=== PATIENT | female | born 1990 | race African-American/Black ===

== ENCOUNTER 2020-11-20 12:32 | Emergency (ER) | payer OTHER ==
[~2020-11-20] VITALS: Ht 154.9 cm; Wt 59.0 kg
[2020-11-20] MEDS ORDERED: GUAIFENESIN-CO118 M1 ORAL (12:58)
[2020-11-20] MEDS ORDERED: AMOXICILLIN500 M1 PO (12:58)
--- NOTE | 2020-11-20 12:59 | Emergency Room Report ---
History of Present Illness General Chief Complaint: To Be Triaged Source: Patient Present Illness HPI 30F no pMHX c/o sore throat and dry cough x 3 days . Denies fever, MOLINA, neck pain, stridor, drooling, hoarse voice, rash, photophobia, SOB, n/v/d, dysuria or other symptoms. The patient's symptoms were gradual onset, severity was moderate, duration since 3 days . Quality: Dry cough Past medical history: Denies Past surgical history: Denies Smokin cigarettes a day Alcohol use: Denies Drug use: Daily marijuana use Review of systems: CONST: No fevers or chills, No night sweats PULMONARY: No productive cough, No shortness of breath CARDIAC: No chest pain, No palpitations GI: No vomiting, No diarrhea , No melena_or_BRBPR : No dysuria, No hematuria, No discharge NEURO: No new_focal_weakness_or_numbness, No confusion, No vision changes 14 point Review of Systems is otherwise negative except per HPI Physical Exam: GENERAL: Awake_alert_ nontoxic, no acute distress Spo2 98% on RA -normal EYES: Extraocular muscles are intact. Conjunctivae clear. Lids without swelling ENT: External nose and ear normal_in_appearance. Oropharynx clear. Head_atraumatic, Moist_oral_mucosa Erythematous oropharynx. Mild cobblestoning. No cobblestoning. No submandibular swelling. No hoarse voice, stridor, drooling. No tracheal tenderness to palpation. no TRANSPORT TECH NECK: No JVD. No meningismus. No thyromegaly. Supple. Trachea midline RESP: Normal respiratory effort. Symmetric rise. No stridor. Clear_to_auscultation_No_rales_No_wheezes CARDIAC: Regular rate and regular rhytm. No_significant pedal edema. ABDOMEN: Soft. Nondistended. Nontender_No_rebound_or_guarding. MSK: Normal muscle tone, without rigidity. Extremities without asymmetric deformity or swelling. SKIN: Warm and dry. No visible cyanosis or pallor. No petechiae NEUROLOGIC: Alert, oriented x3. Motor_and_sensation_grossly_intact. No truncal ataxia. Gait_normal Psych: Normal mood and affect, normal judgment and insight - COORDINATION OF CARE Case was discussed with: Patient Medical Decision Making/Plan: Differential diagnosis includes viral pharyngitis, strep pharyngitis, viral syndrome, without evidence of retropharyngeal abscess, epiglottitis, peritonsillar abscess, Conrad's angina, among others. On exam patient has tonsillar swelling and exudate, will treat empirically with antibiotics given their Centor criteria. No evidence of airway compromise, patient tolerating orals without any respiratory distress, no drooling or stridor. No evidence of any emergent ENT condition. Patient appears stable for discharge home and follow-up with her regular doctor. Pertinent results reviewed with the patient. I educated the patient on the current treatment plan including the risks, benefits, and alternatives. I also discussed the extent and limitations of the current evaluation. The patient expressed understanding and agreement with plan. I recommended PMD follow-up within 1-2 days. Also advised that the patient return to the Emergency Department as soon as possible if they experience any new, persistent, or worsening symptoms. Allergies: Coded Allergies: No Known Allergies (Unverified , 11/20/20) Physical Exam Sp02 EP Interpretation: reviewed, normal Medical Decision Making Diagnostic Impression: Primary Impression: Sore throat Additional Impression: Cough Disposition: HOME, SELF-CARE Admit Decision Time: 12:58 Condition: Stable Scripts Guaifenesin/Codeine Phos* (ROBITUSSIN AC*) 118 Ml Liquid 1 TSP ORAL Q4H PRN for For Cough, #118 ML 0 Refills Prov: Michelle Beck D.O. 11/20/20 Amoxicillin (AMOXICILLIN) 500 Mg Tablet 500 MG PO BID for 7 Days, #14 TAB Prov: Michelle Beck D.O. 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 Drink plenty of fluids. Take antibiotics as prescribed. Follow-up with your doctor sooner if your condition requires a more timely clinical reevaluation. Return to the emergency department immediately if you feel that your condition is worsening or if you have any new or concerning symptoms. Review your discharge instructions and take any prescriptions given as instructed. [facility] PROVIDES FREE OR LOW-COST HEALTH SERVICES TO PEOPLE WHO CAN SHOW PROOF THAT THEY LIVE IN [facility]. TO FIND MORE CLINICS PARTNERED WITH THE COUNTY TO PROVIDE SERVICE, PLEASE CALL . Michelle Beck D.O. Nov 20, 2020 12:59
--- NOTE | 2020-11-20 13:33 | NUR ---
examined by dr dia discharged home with instruction and rx follow up with pmd
[2020-11-20 13:35] VITALS: BP 130/80
[2020-11-20 13:36] VITALS: BP 130/80
== END 2020-11-20 13:37 | disposition home or self-care (01) ==
LOC: EMR 13:00
DX: R07.0 Pain in throat (principal); R05 Cough; F17.210 Nicotine dependence, cigarettes, uncomplicated
CPT/HCPCS: 99282